=== PATIENT | female | born 1975 | race Caucasian/White ===

== ENCOUNTER → 2020-02-25 14:34 | Outpatient (CLI) | payer BC, SELFPAY ==
[2020-02-27 10:17] LABS: Cancer Antigen 125 9.9 U/mL (0.0-38.1); Carbohydrate AG 19-9 25 U/mL (0-35)
== END ==
LOC: WOBLAB 14:41
PROVIDERS: Visit Provider Obstetrics & Gynecology
DX: N83.201 Unspecified ovarian cyst, right side (principal)
CPT/HCPCS: 36415; 82378; 86301; 86304

== ENCOUNTER → 2020-03-12 13:57 | Outpatient (CLI) | payer BC, SELFPAY ==
[2020-03-12 16:08] LABS: Cholesterol 158 mg/dL (200); High Density Lipoprotein 58 mg/dL; Triglycerides 139 mg/dL; Very Low Density Lipoprotein 28 mg/dL (5-40)
[2020-03-12 16:22] LABS: Hemoglobin A1c 5.3 % (3.8-5.6)
[2020-03-18 10:39] LABS: HPV APTIMA, High Risk Negative (Negative)
== END ==
PROVIDERS: Visit Provider Obstetrics & Gynecology
DX: Z13.1 Encounter for screening for diabetes mellitus (principal); Z12.4 Encounter for screening for malignant neoplasm of cervix
CPT/HCPCS: 36415; 80061; 83036; 87624; 88175; G0145

== ENCOUNTER → 2020-03-27 12:10 | Outpatient (CLI) | payer BC, SELFPAY ==
--- NOTE | 2020-03-27 12:29 | BI_ITS ---
MAMMOGRAPHY - BILATERAL SCREENING REASON FOR EXAM: Female, 44 years old. Routine annual screening examination. PERTINENT HISTORY: Aunt with breast cancer. TECHNIQUE: Digital bilateral breast janis (3D mammographic acquisition) in the CC and MLO projections. 2-D mediolateral oblique (MLO) and craniocaudad (CC) views of both breasts were obtained. CAD: Full Field Digital Mammography with Computer Added Detection was performed. COMPARISON: None. Baseline examination. FINDINGS: Breast Composition: The breasts are heterogeneously dense, which may obscure small masses. There are no dominant masses or suspicious calcifications. There is a 6.5 mm x 8.1 mm well-defined nodule in the upper lateral portion of the left breast with what appears to be a central fatty hilum suggestive of a small lymph node. Correlation with ultrasound is recommended. No other significant abnormalities are identified. BI/SCREEN MAMM (CAD) W/JANIS BILAT IMPRESSION: 6.5 mm x 8.1 mm well-defined nodule in the upper lateral portion of the left breast as described. Correlation with ultrasound is recommended. ASSESSMENT CATEGORY: BIRADS Category 0: Incomplete. Need additional imaging evaluation. A letter regarding these results will be sent to the patient by the facility within 30 days. Approximately 10% of breast cancers are not detected by mammography. A normal mammogram should not delay biopsy of a clinically suspicious abnormality. [id number] Electronically Signed: Jayesh Fleming, at 14:17 EDT , Service support ,
== END ==
PROVIDERS: Referring Provider Obstetrics & Gynecology; Visit Provider Obstetrics & Gynecology
DX: Z12.31 Encounter for screening mammogram for malignant neoplasm of breast (principal)
CPT/HCPCS: 77063; 77067

== ENCOUNTER → 2020-04-01 13:22 | Outpatient (CLI) | payer BC, SELFPAY ==
--- NOTE | 2020-04-01 13:24 | US_ITS ---
STUDY: ULTRASOUND BREAST - LEFT REASON FOR EXAM: Female, 44 years old. Abnormal screening mammogram. TECHNIQUE: Axial and longitudinal images of the LEFT breast were performed with a high resolution ultrasound transducer. # OF IMAGES: 12 COMPARISON: Comparison is made with prior mammogram dated 03/27/2020. FINDINGS: LEFT Breast: The mammographic abnormality corresponds to a 7 mm x 3 mm x 8 mm benign-appearing lymph node at the 2 o''clock position of the breast at 2 cm from the nipple. US/Breast Limited Unilateral IMPRESSION: The mammographic abnormality corresponds to a 7 mm x 3 mm x 8 mm benign-appearing lymph node at the 2 o''clock position the breast at 2 cm from the nipple. ASSESSMENT CATEGORY: BIRADS Category 2: Benign. A letter regarding these results will be sent to the patient by the facility within 30 days. Electronically Signed: Jayesh Fleming, at 14:56 EDT , Service support ,
== END ==
LOC: OPUS 13:22
PROVIDERS: Referring Provider Obstetrics & Gynecology; Visit Provider Obstetrics & Gynecology
DX: R92.8 Other abnormal and inconclusive findings on diagnostic imaging of breast (principal)
CPT/HCPCS: 76642

== ENCOUNTER 2020-06-18 05:49 | Day surgery (SDC) | payer BC, SELFPAY ==
--- NOTE | 2020-06-09 12:42 | EKG12_ITS ---
Test Reason : PREOP Blood Pressure : / mmHG Vent. Rate : 097 BPM Atrial Rate : 097 BPM P-R Int : 136 ms QRS Dur : 080 ms QT Int : 360 ms P-R-T Axes : 041 049 038 degrees QTc Int : 457 ms Normal sinus rhythm Normal ECG No previous ECGs available Confirmed by MILADY HUGHES, ALIS ([id number]), raw sampler ANGEL SANTIAGO ([id number]) on 06/12/2020 11:28:04 AM Referred By: Rudy Glaser Confirmed By:ALIS HENNING MD
[2020-06-09 15:00] LABS: Hematocrit 45.7 % (37-47); Hemoglobin 15.1 g/dL (12.0-15.0); Mean Corpuscular Hgb 32.6 pg (27.0-32.0); Mean Corpuscular Volume 98.7 fL (81-99); Mean Platelet Vol. 10.4 fl (6.2-12.0); Platelet Count 279 K/mm3 (150-450); RBC Distribution Width CV 12.8 % (11.6-14.6); RBC Distribution Width SD 46.4 fl (35.1-43.9); Red Blood Count 4.63 M/mm3 (4.2-5.4); White Blood Count 9.4 K/mm3 (4.4-11.0)
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
[2020-06-18] VITALS (8 sets, daily range): BP systolic 117–129; BP diastolic 62–81; PULSE 71–90; RESP 16; TEMP 36.3–37.5; O2SAT 94–100; BMI 34.7
[2020-06-18 06:11] LABS: Internal QC Validated? YES +Cl - CLEAR BKGD
[2020-06-18 06:16] LABS: Pregnancy, Urine Negative Negative
[2020-06-18] MEDS: Lactated Ringers 1,000 ML 120 ML IV (06:47)
[2020-06-18] MEDS: Lactated Ringers 1,000 ML 100 ML IV (06:49)
--- NOTE | 2020-06-18 07:30 | HYST_PTH ---
PATIENT: RICARDO MCINTYRE LOC: [facility] [place] U#:[id number] AGE/SX: 44/F ROOM: RE06/18/[address]: Dr. Iggy Goode MD : 1975 BED: DIS: 06/18/2020 SPEC #: [id number] RECD: 06/18/20 10:28 STATUS: JEFE REMiri #: [id number] TANYA: 06/18/20 07:[address]: Iggy Goode DEPT: SURGICAL PATHOLOGY RECD BY: Kimberly Stephens ENTERED: 06/18/20 11:59 SP TYPE: HYSTERECT OTHR DR: Dr. Rudy Glaser MD No Primary Care Phys Tissues: Uterus, NOS Procedures: Surgery Specimen Level V HEADER OPERATION: Lap robotic hysterectomy, BSO, cysto PRE-OP DIAGNOSIS: Dysmenorrhea, right ovarian cyst TISSUE SUBMITTED: Uterus, cervix, bilateral fallopian tubes and ovaries MICROSCOPIC DIAGNOSIS Uterus, cervix, bilateral fallopian tubes and ovaries, hysterectomy and bilateral salpingo-oophorectomy: Cervix - mild chronic cystic cervicitis. Endometrium - secretory endometrium. Myometrium - adenomyosis. See comment. Bilateral fallopian tubes - no pathologic diagnosis. Right ovary - physiologic follicular cyst and corpus luteum. Left ovary - physiologic follicular cysts. SJ:rg 06/19/20 COMMENT Grossly identified nodules are consistent with adenomyosis. MICROSCOPIC DESCRIPTION Slides are reviewed. GROSS DESCRIPTION Received in fixative is one container labeled with the patient's name and designated uterus, cervix, bilateral fallopian tubes and ovaries. The specimen consists of a hysterectomy specimen consisting of uterus with cervix and attached bilateral fallopian tubes and ovaries. The uterus with cervix weighs 62 gm and measures 9 x 5 x 3.5 cm. The serosal surface is bird, glistening. The ectocervical mucosa is unremarkable. The external os is circular in contour. The endocervical canal measures 3 cm in length and the endocervical mucosa is bird, glistening and unremarkable. Sections reveal multiple cysts filled with mucoid material. The triangular endometrial cavity measures 4 cm in length and up to 2 cm in width. The endometrium is bird, glistening without any mass lesion and measures 0.1 cm in thickness. Sections of the uterine wall reveal multiple intramural nodular masses. The largest mass measures 1 cm in greatest dimension. An uninvolved uterine wall measures up to 2 cm in thickness. The right fallopian tube measures 7 cm in length and 0.7 cm in diameter. The fimbrial end is identified. Sections reveal unremarkable cut surfaces. No tubo-ovarian adhesions are noted. The soft to cystic right ovary measures 3 x 1.5 x 1.5 cm. Sections reveal a hemorrhagic corpus luteum measuring 1.5 cm in greatest dimension. The left fallopian tube is similar appearance to right and measures 6 cm in length and 0.5 cm in diameter. The soft to cystic left ovary measures 2.5 x 1.5 x 1.5 cm. Sections reveal a cyst filled with clear fluid measuring 1.2 cm in greatest dimension. The cyst wall is thin without any papillation. Retail Stocker sections are submitted in 12 cassettes as follows: 1 - anterior cervix, 2 - posterior cervix, 3 & 4 - anterior uterine wall, 5 & 6 - posterior uterine wall, 7 - nodular masses, 8 - right fallopian tube, 9??right ovary, 10 - left fallopian tube, 11 & 12 - left ovary, entirely submitted. / PHYLLIS:sky 06/18/20 TC:5 CPT: 63862
[2020-06-18] MEDS: Ropivacaine 0.5% 30 ML Vial (07:54)
[2020-06-18] MEDS: Cefazolin 2 GM in 0.9% Normal Saline 100 ML IV (07:54)
[2020-06-18] MEDS: Lactated Ringers 1,000 ML 125 ML IV (10:10)
--- NOTE | 2020-06-18 10:12 | OP.PCM_ITS ---
Report of Operation Date of Procedure: 06/18/20 Pre-Operative Diagnosis: Dysmenorrhea, abnormal uterine bleeding Post-Operative Diagnosis: Dysmenorrhea, abnormal uterine bleeding Surgery/Procedure Performed:: Robotic assisted total laparoscopic hysterectomy bilateral salpingo-oophorectomy, cystoscopy Description of Surgical Findings:: Surgeon: Iggy Goode MD EBL: 100 cc IV fluids: 1800 cc Urine output: 300 cc Complications: None Specimen: Uterus, fallopian tubes, ovaries, cervix Findings: Normal uterus, tubes, and ovaries. Bilateral pelvic sidewall bowel, IP and ovarian adhesions were noted and carefully dissected. No pathology noted on postoperative cystoscopy. Bilateral ureteral jets noted. Consent: 44-year-old with a long history of abnormal uterine bleeding and dysmenorrhea in need of robotic assisted total laparoscopic hysterectomy bilateral salpingo- oophorectomy and cystoscopy. Patient understands the risk of the procedure include but are not limited to visceral or vascular injury, prolonged hospitalization, blood loss and need for transfusion, and reoperation. Patient stated understanding and wished to proceed. All questions were answered and consent was signed. Procedure: Patient was brought back to the OR where general anesthesia was found to be adequate. 2 g of Cefotan were given for infection prophylaxis. Patient was prepared and draped in a dorsal lithotomy position with yellowfin stirrups. A weighted speculum was placed in the posterior aspect of the vagina and a single- tooth tenaculum was used to grasp the anterior lip of the cervix. Cervical dilators were used to dilate the cervix. Uterine manipulator was placed. Veress needle was placed at umbilicus, water safety test was passed and abdomen was insufflated. Midline supraumbilical 8 mm trocar was incised and inserted. Laparoscopic camera was inserted and above findings were noted. Under direct visualization bilateral 8 mm trocar sites were placed. 5 mm tv production assistant trocar was placed in the left upper quadrant under direct visualization. Robot was docked. Using a fenestrated bipolar and monopolar scissors above noted adhesions were carefully dissected for greater than 15 minutes. Using a fenestrated bipolar and monopolar scissors the left round ligament was identified cut and cauterized. The anterior and posterior flap of the broad ligament were carefully dissected in order to form the bladder flap and isolate the left uterine vessel. Left IP ligament was cut and cauterized mesosalpinx was cut and cauterized. Left uterine artery was cut and cauterized. Lateralized beyond the level of colpotomy cup. Bladder flap further develop beyond the level of colpotomy cup. Right round ligament was identified cut and cauterized anterior and posterior portion of the broad ligament were dissected in order to form the bladder flap which was now developed bilaterally beyond the level of the colpotomy cup. And isolate the uterine vessels. Right IP ligament was cut and cauterized. Mesosalpinx was cut and cauterized. Uterine vessels were identified cut and cauterized lateralized beyond the level colpotomy cup. Colpotomy was made in a circumferential incision. Uterus cervix bilateral fallopian tubes and ovaries were removed. Good hemostasis was noted. Colpotomy was closed in a continuous running fashion. Good hemostasis was noted. Cystoscopy was performed and above findings were noted. Abdomen was deflated and trochars were removed under direct visualization. Trocar incisions were closed in a subcutaneous fashion. Good hemostasis was noted. All counts correct x2. Patient tolerated the procedure well and was brought to recovery in a stable condition. tongue presser: Sean Anderson Type of Anesthesia:: General
--- NOTE | 2020-06-18 10:25 | DCINST_ITS ---
Discharge Diet: No Restrictions Discharge Activity: Return to Normal Activity, May Drive, May not drive while taking narcotic pain medications., May Shower, - - No tub baths for 2 weeks May resume sexual activity in: 2 weeks Lifting Restrictions: No lifting over 25 pounds for 3 weeks Call your doctor if your incision/area has: Foul Smelling Discharge Call your doctor if you observe: Fever of 101 or Higher, Shortness of breath, Chest pain Allergies/Adverse Reactions: Allergies amoxicillin Allergy (Verified 06/09/20 10:22) Hives Medications to take at Discharge NK 06/09/20 Primary Care Physician: Care Physician,No Primary [Primary Care Provider] - Test Results: Test results from this visit will be discussed in further detail at your follow- up appointment, if applicable. Please Follow Up With: Iggy Goode MD When: 2 weeks
[2020-06-18] MEDS: Acetaminophen 500 MG Tablet 1000 MG PO (11:30)
[2020-06-18] MEDS: oxyCODONE 5 MG Tablet PO (11:30)
== END 2020-06-18 14:25 | disposition home or self-care (01) ==
LOC: SDC 05:49 → AC 05:50
PROVIDERS: Anesthesiology; Referring Provider Obstetrics & Gynecology; Visit Provider Obstetrics & Gynecology
PROC: 0UT94ZZ Resection of Uterus, Percutaneous Endoscopic Approach (ICD-10-PCS; CPT 58571; principal; 2020-06-18 07:10)
DX: N80.0 Endometriosis of uterus (principal); N83.02 Follicular cyst of left ovary; N83.11 Corpus luteum cyst of right ovary; N94.6 Dysmenorrhea, unspecified; Z20.828 Contact with and (suspected) exposure to other viral communicable diseases; F17.200 Nicotine dependence, unspecified, uncomplicated
CPT/HCPCS: 00840; 58571; S2900; 36415; 81025; 85027; 86850; 86900; 86901; 87426; 88307; 93005; C9803; J7120; J2405